=== PATIENT | female | born 1990 | race Caucasian/White ===

== ENCOUNTER → 2018-07-10 | Outpatient (CLI) | payer OTHER ==
[2018-07-10 16:43] LABS: HCT 39.1 % (34.0-46.0); HGB 12.8 gm/dL (11.4-16.0); MCH 30.3 pg (25.0-35.0); MCHC 32.7 g/dL (31.0-37.0); MCV 92.5 fL (80.0-100.0); Mean Platelet Volume 6.3; Platelet Count 267 k/uL (150-450); RBC 4.22 m/uL (3.80-5.40); RDW 12.1 % (11.5-15.5); WBC 5.6 k/uL (3.8-10.6)
[2018-07-10 17:43] LABS: Erythrocyte Sedimentation Rate 7 mm/hr (0-20)
[2018-07-10 23:41] LABS: ALT 23 U/L (8-44); AST 31 U/L (13-35); Albumin/Globulin Ratio 1.84 (1.60-3.17); Alkaline Phosphatase 61 U/L (41-126); C Reactive Protein <0.4 mg/dL (0.0-0.8); Calcium 9.6 mg/dL (8.7-10.3); Carbon Dioxide 26.8 mmol/L (21.6-31.8); Chloride 105 mmol/L (96-109); Globulin 2.5 g/dL (1.6-3.3); Glucose 84 mg/dL (70-110); Potassium 4.5 mmol/L (3.5-5.5); Sodium 139 mmol/L (135-145); Total Bilirubin 0.2 mg/dL (0.3-1.2); Total Protein 7.1 g/dL (6.2-8.2)
== END | disposition home or self-care (01) ==
LOC: LABWHC1 16:22
PROVIDERS: ATTEND Internal Medicine
DX: R19.4 Change in bowel habit (principal)
CPT/HCPCS: 36415; 80053; 83516; 84439; 84443; 85027; 85652; 86140

== ENCOUNTER 2022-01-06 09:54 | Emergency (ER) | payer OTHER ==
[2022-01-06 09:59] VITALS: TEMP 97.5
--- NOTE | 2022-01-06 10:06 | ED ---
General Adult HPI - General Chief complaint: Chest Pain Stated complaint: Chest Pain Time Seen by Provider: 01/06/22 10:04 Source: patient, RN notes reviewed Mode of arrival: ambulatory Limitations: no limitations - History of Present Illness Initial comments: Patient is a 31-year-old female presents the emergency room with complaints of sharp left-sided chest pain that is intermittent without any aggravating or alleviating factors she reports that the pain is worse with deep inspiration and the pain prevents her from taking in a deep breath. She reports last night that she had some restlessness in her lower extremities with the symptoms but denies any other associated symptoms. She had bronchitis a few weeks ago and states her episodes have been more frequently since that time. She denies any shortness of breath not related to inability to take in a deep breath, orthopnea, headache, dizziness, lower extremity edema, headache, nausea, vomiting, diaphoresis, fevers or chills. She denies any family history of cardiovascular disease, PE, DVT or strokes. She states that she had an episode of similar chest pain approximately periodically over the last year but that her symptoms currently seem to be frequent lately. She denies any other significant past medical history and does not take any medications on a regular basis. - Related Data Allergies Allergy/AdvReac Type Severity Reaction Status Date / Time Penicillins Allergy Rash/Hives Verified 01/06/22 09:59 Review of Systems ROS Statement: Those systems with pertinent positive or pertinent negative responses have been documented in the HPI. ROS Other: All systems not noted in ROS Statement are negative. Past Medical History Additional Past Medical History / Comment(s): Bronchitis History of Any Multi-Drug Resistant Organisms: None Reported Past Surgical History: Back Surgery Past Psychological History: No Psychological Hx Reported Smoking Status: Never smoker Past Alcohol Use History: Occasional Past Drug Use History: Marijuana General Exam Limitations: no limitations General appearance: alert, in no apparent distress Head exam: Present: atraumatic, normocephalic, normal inspection Eye exam: Present: normal appearance, PERRL, EOMI. Absent: scleral icterus, conjunctival injection, periorbital swelling ENT exam: Present: normal exam, mucous membranes moist Neck exam: Present: normal inspection. Absent: tenderness, meningismus, lymphadenopathy Respiratory exam: Present: normal lung sounds bilaterally. Absent: respiratory distress, wheezes, rales, rhonchi, stridor Cardiovascular Exam: Present: regular rate, normal rhythm, normal heart sounds. Absent: systolic murmur, diastolic murmur, rubs, gallop, clicks GI/Abdominal exam: Present: soft, normal bowel sounds. Absent: distended, tenderness, guarding, rebound, rigid Extremities exam: Present: normal inspection, full ROM, normal capillary refill. Absent: tenderness, pedal edema, joint swelling, calf tenderness Back exam: Present: normal inspection Neurological exam: Present: alert, oriented X3, CN II-XII intact Psychiatric exam: Present: normal affect, normal mood Skin exam: Present: warm, dry, intact, normal color. Absent: rash Course Vital Signs 01/06/22 01/06/22 01/06/22 09:56 10:46 12:25 Temperature 97.5 F L Pulse Rate 87 75 74 Respiratory 20 18 18 Rate Blood Pressure 132/89 127/81 119/74 O2 Sat by Pulse 100 99 97 Oximetry Medical Decision Making - Medical Decision Making Given sharp pain with deep inspiration low probability for ACS however the setting of persistent chest pain will check EKG, CMP, CBC, troponin and chest x- ray. With difficulty with deep inspiration and chest pain will also check d- dimer. Hemodynamically stable. No need for aspirin or Nitropaste at this time. Will monitor closely. EKG normal sinus rhythm. CBC and chemistry panel overall unremarkable. Troponin negative. Chest x-ray with no acute process. D-dimer normal. Clotting times normal. Patient with bronchitis recently with increased episodes since bronchitis. Symptoms and negative labs consistent with costochondritis. Discussed indications for CTA to evaluate PE however only risk factor use of oral contraceptives. She is a nonsmoker with no family history of DVT and no hypoxia or persistent chest pain. Low probability of PE strict return parameters regarding shortness of breath and chest pain reviewed. Will discharge home. Encouraged follow-up with her primary care provider. Case discussed with Dr. Berry. - Lab Data Result diagrams: 01/06/22 10:30 01/06/22 10:30 Lab Results 01/06/22 01/06/22 01/06/22 Range/Units 10:30 10:30 10:30 WBC 8.3 (3.8-10.6) k/uL RBC 4.26 (3.80-5.40) m/uL Hgb 13.0 (11.4-16.0) gm/dL Hct 39.1 (34.0-46.0) % MCV 91.7 (80.0-100.0) fL MCH 30.6 (25.0-35.0) pg MCHC 33.4 (31.0-37.0) g/dL RDW 11.9 (11.5-15.5) % Plt Count 321 (150-450) k/uL MPV 6.7 Neutrophils % 63 % Lymphocytes % 29 % Monocytes % 4 % Eosinophils % 2 % Basophils % 0 % Neutrophils # 5.3 (1.3-7.7) k/uL Lymphocytes # 2.4 (1.0-4.8) k/uL Monocytes # 0.3 (0-1.0) k/uL Eosinophils # 0.1 (0-0.7) k/uL Basophils # 0.0 (0-0.2) k/uL PT 9.9 (9.0-12.0) sec INR 0.9 (<1.2) APTT 25.4 (22.0-30.0) sec D-Dimer 0.20 (<0.60) mg/L FEU Sodium 138 (137-145) mmol/L Potassium 4.4 (3.5-5.1) mmol/L Chloride 107 (98-107) mmol/L Carbon Dioxide 24 (22-30) mmol/L Anion Gap 7 mmol/L BUN 16 (7-17) mg/dL Creatinine 0.91 (0.52-1.04) mg/dL Est GFR (CKD-EPI)AfAm >90 (>60 ml/min/1.73 sqM) Est GFR (CKD-EPI)NonAf 84 (>60 ml/min/1.73 sqM) Glucose 104 H (74-99) mg/dL Calcium 9.1 (8.4-10.2) mg/dL Magnesium 2.0 (1.6-2.3) mg/dL Total Bilirubin 0.2 (0.2-1.3) mg/dL AST 22 (14-36) U/L ALT 13 (4-34) U/L Alkaline Phosphatase 63 (38-126) U/L Troponin I (0.000-0.034) ng/mL Total Protein 7.5 (6.3-8.2) g/dL Albumin 4.5 (3.5-5.0) g/dL Coronavirus (PCR) (Not Detectd) 01/06/22 01/06/22 Range/Units 10:30 10:46 WBC (3.8-10.6) k/uL RBC (3.80-5.40) m/uL Hgb (11.4-16.0) gm/dL Hct (34.0-46.0) % MCV (80.0-100.0) fL MCH (25.0-35.0) pg MCHC (31.0-37.0) g/dL RDW (11.5-15.5) % Plt Count (150-450) k/uL MPV Neutrophils % % Lymphocytes % % Monocytes % % Eosinophils % % Basophils % % Neutrophils # (1.3-7.7) k/uL Lymphocytes # (1.0-4.8) k/uL Monocytes # (0-1.0) k/uL Eosinophils # (0-0.7) k/uL Basophils # (0-0.2) k/uL PT (9.0-12.0) sec INR (<1.2) APTT (22.0-30.0) sec D-Dimer (<0.60) mg/L FEU Sodium (137-145) mmol/L Potassium (3.5-5.1) mmol/L Chloride (98-107) mmol/L Carbon Dioxide (22-30) mmol/L Anion Gap mmol/L BUN (7-17) mg/dL Creatinine (0.52-1.04) mg/dL Est GFR (CKD-EPI)AfAm (>60 ml/min/1.73 sqM) Est GFR (CKD-EPI)NonAf (>60 ml/min/1.73 sqM) Glucose (74-99) mg/dL Calcium (8.4-10.2) mg/dL Magnesium (1.6-2.3) mg/dL Total Bilirubin (0.2-1.3) mg/dL AST (14-36) U/L ALT (4-34) U/L Alkaline Phosphatase (38-126) U/L Troponin I <0.012 (0.000-0.034) ng/mL Total Protein (6.3-8.2) g/dL Albumin (3.5-5.0) g/dL Coronavirus (PCR) Not Detected (Not Detectd) - EKG Data EKG Comments: Sinus rhythm, ventricular rate 65 bpm, KS interval 140 ms, QRS duration 90 ms, QT/QTC 388/390 ms, PRT axes -1, 46, 17 - Radiology Data Radiology results: report reviewed, image reviewed Two-view chest x-ray: There is no focal airspace opacity, pleural effusion or pneumothorax seen. Cardiac silhouette size is within normal limits. The osseous structures are intact. Impression no acute process. Disposition Clinical Impression: Costochondritis Disposition: HOME SELF-CARE Condition: Stable Instructions (If sedation given, give patient instructions): Costochondritis (ED) Additional Instructions: Recommend [id number] cough suppressants if cough from recent bronchitis persists to help prevent further costochondritis pain. If symptoms seem to worsen or any associated symptoms such as shortness of breath or tachycardia please return to the emergency room immediately. Please follow-up with your primary care provider. Please return to the Emergency Department if symptoms wo rsen or any other concerns. Is patient prescribed a controlled substance at d/c from ED?: No Referrals: Randy Sanders DO [Primary Care Provider] - 1-2 days Time of Disposition: 11:58
[2022-01-06 10:43] LABS: Basophils % (A) 0 %; Eosinophils # (A) 0.1 k/uL (0-0.7); Eosinophils % (A) 2 %; HCT 39.1 % (34.0-46.0); Lymphocytes # (A) 2.4 k/uL (1.0-4.8); Lymphocytes % (A) 29 %; MCH 30.6 pg (25.0-35.0); MCHC 33.4 g/dL (31.0-37.0); MCV 91.7 fL (80.0-100.0); Mean Platelet Volume 6.7; Monocytes # (A) 0.3 k/uL (0-1.0); Monocytes % (A) 4 %; Neutrophils # (A) 5.3 k/uL (1.3-7.7); Neutrophils % (A) 63 %; Platelet Count 321 k/uL (150-450); RBC 4.26 m/uL (3.80-5.40); RDW 11.9 % (11.5-15.5); WBC 8.3 k/uL (3.8-10.6)
[2022-01-06 10:49] VITALS: RESP 18
[2022-01-06 10:54] LABS: ALT 13 U/L (4-34); AST 22 U/L (14-36); African American GFR (CKD) >90 (>60 ml/min/1.73 sqM); Albumin 4.5 g/dL (3.5-5.0); Alkaline Phosphatase 63 U/L (38-126); Anion Gap 7 mmol/L; Blood Urea Nitrogen 16 mg/dL (7-17); Calcium 9.1 mg/dL (8.4-10.2); Carbon Dioxide 24 mmol/L (22-30); Chloride 107 mmol/L (98-107); Glucose 104 mg/dL (74-99); Non-African American GFR(CKD) 84 (>60 ml/min/1.73 sqM); Potassium 4.4 mmol/L (3.5-5.1); Sodium 138 mmol/L (137-145); Total Bilirubin 0.2 mg/dL (0.2-1.3); Total Protein 7.5 g/dL (6.3-8.2)
[2022-01-06 11:00] LABS: INR 0.9 (<1.2); Partial Thromboplastin Time 25.4 sec (22.0-30.0); Prothrombin Time 9.9 sec (9.0-12.0)
--- NOTE | 2022-01-06 11:03 | XR ---
EXAMINATION TYPE: XR chest 2V DATE OF EXAM: 01/06/2022 COMPARISON: NONE HISTORY: Chest pain. TECHNIQUE: Frontal and lateral views of the chest are obtained. FINDINGS: Overlying EKG leads are present. There is no focal air space opacity, pleural effusion, or pneumothorax seen. The cardiac silhouette size is within normal limits. The osseous structures are intact. IMPRESSION: No acute process.
[2022-01-06 12:26] VITALS: BP 119/74; PULSE 74
== END 2022-01-06 12:30 | disposition home or self-care (01) ==
LOC: EC 09:54
DX: M94.0 Chondrocostal junction syndrome [Tietze] (principal); F12.90 Cannabis use, unspecified, uncomplicated; Z20.822 Contact with and (suspected) exposure to COVID-19
CPT/HCPCS: 36415; 71046; 80053; 83735; 84484; 85025; 85379; 85610; 85730; 87635; 93005; 99285

== ENCOUNTER 2023-01-19 06:39 | Day surgery (SDC) | payer BC, OTHER ==
[2023-01-18 11:12] VITALS: BMI 28.1
[2023-01-19] MEDS ORDERED: LACTATED RINGERS 1,000 ML IV SCH (06:58)
[2023-01-19] MEDS ORDERED: LIDOCAINE 1% (10MG/ML) FOR IV START INTRADERMA PRN (06:58)
[2023-01-19 07:14] VITALS: TEMP 98
[2023-01-19] MEDS ORDERED: LIDOCAINE 2% INJ 20 MG/ML (2 ML VIAL) ONE (08:04)
[2023-01-19] MEDS ORDERED: fentaNYL (PF) 50 MCG/ML 2 ML AMP ONE (08:04)
[2023-01-19] MEDS ORDERED: MIDAZOLAM 2 MG/2 ML VIAL ONE (08:04)
[2023-01-19] MEDS ORDERED: PROPOFOL 10 MG/ML 20 ML VIAL IV ONE (08:04)
--- NOTE | 2023-01-19 08:21 | P.PCN ---
Date of Procedure: 01/19/23 Procedure(s) Performed: Brief history: Patient is a pleasant 32-year-old white female scheduled for an elective upper endoscopy as well as colonoscopy as a part of evaluation of chronic diarrhea for the last several months duration. As a part of she was noted to have positive serology for celiac disease. She is scheduled for an upper endoscopy as well as colonoscopy to evaluate further Procedure performed: Esophagogastroduodenoscopy with biopsy Colonoscopy with biopsy Preoperative diagnosis: Positive serology for celiac disease Chronic diarrhea and abdominal pain Anesthesia: MAC Procedure: After informed consent was obtained from the patient was brought into the endoscopy unit and IV sedation was administered by anesthesia under continuous monitoring. Initially upper endoscopy was done. The Olympus GF 160 video endoscope was inserted inserted into the mouth and esophagus intubated without any difficulty and was gradually advanced into the stomach and duodenum and carefully examined. The bulb and second part of the duodenum appeared normal. Biopsies were done from the duodenum to rule out celiac disease. The scope was then withdrawn into the stomach adequately insufflated with air and upon careful examination the antrum had mild antral gastritis and biopsies were done from t his area. Mucosa of the body, cardia and fundus appeared normal. The scope was then withdrawn into the esophagus. The GE junction was located at 40 cm to the incisors. It appeared regular with no erythema erosions or ulcerations. Rest of the esophagus appeared normal. Patient tolerated the procedure well. At this time the patient continued to remain sedation. Initial digital rectal examination was normal. Olympus CF 160 video colonoscope was then inserted into the rectum and gradually advanced to the cecum without any difficulty. Careful examination was performed as the scope was gradually being withdrawn. The prep was excellent. The cecum, ascending colon, transverse colon, descending colon, sigmoid colon and rectum appeared normal. Abscesses were done from ascending and descending colon to rule out microscopic/Collagenous colitis Retroflexion was performed in the rectum and no lesions were noted. Patient tolerated the procedure well. Impression: 1. Upper endoscopy revealed mild antral gastritis but no evidence of esophagitis. Multiple duodenal biopsies to evaluate for celiac disease 2. Colonoscopy was within normal limits with no evidence of colorectal neoplasi a Recommendations: Findings of this examination were discussed with the patient as well as her family. She was advised to follow with the biopsy results. She'll be seen in office in 2 weeks.
[2023-01-19 08:50] VITALS: BP 118/77; PULSE 60; RESP 16
== END 2023-01-19 09:25 | disposition home or self-care (01) ==
LOC: ORWHC2ENDO 06:39
PROVIDERS: ATTEND Internal Medicine Gastroenterology
DX: K29.50 Unspecified chronic gastritis without bleeding (principal); K52.9 Noninfective gastroenteritis and colitis, unspecified; K90.0 Celiac disease; K21.9 Gastro-esophageal reflux disease without esophagitis; Z88.0 Allergy status to penicillin
CPT/HCPCS: 81025; 88305; 45380; 43239; J2250; J3010; J2704; J2001

== ENCOUNTER → 2023-08-02 | Outpatient (CLI) | payer BC, OTHER ==
--- NOTE | 2023-08-02 11:28 | CT ---
EXAMINATION TYPE: CT abdomen pelvis w con DATE OF EXAM: 08/02/2023 COMPARISON: 02/03/2010 INDICATION: abdominal pain, abdominal/pelvic swelling, distention DLP: 697.20 mGycm, Automated exposure control for dose reduction was used. CONTRAST: 100 mL of Isovue 300. Study performed with Oral Contrast TECHNIQUE: Axial images were obtained from above the diaphragm to the pubic rami in the axial plane a t 5 mm thick sections. Reconstructed images are reviewed on the computer in the coronal plane. FINDINGS: Limited CT sections are obtained the lung bases. The lung bases are clear. CT ABDOMEN: Liver: There is mild fatty infiltration liver. Spleen: Normal Pancreas: Normal Adrenal glands: The adrenal glands are normal. Gallbladder: Normal Kidneys: There is a 2.9 cm density measuring 122 Hounsfield units superior pole left kidney there is an interval change from 2009. Additional workup for mass. No hydronephrosis is present. No cysts ar e present. Aorta: Normal Inferior vena cava: Normal. CT PELVIS: Loops of bowel within the abdomen and pelvis are normal. Scattered diverticula without acute divertic ulitis in the sigmoid colon. There are loops of bowel which are incompletely distended or lack ora l contrast limiting their evaluation. Appendix: Normal as visualized. Urinary bladder: Decompressed with some limited evaluation Genitourinary structures: Uterus is normal. There is an IUD within uterus. Adnexa are unremarkable. Osseous structures: No suspicious lytic or sclerotic lesions. Spina bifida occulta of S1 appears to b e present posteriorly spondylolysis on the right is not excluded. IMPRESSION: 1. Diverticulosis without acute diverticulitis sigmoid colon. 2. Solid appearing nodule within the superior medial left kidney. Additional workup is recommended. 3. Mild fatty infiltration of the liver.
== END | disposition home or self-care (01) ==
LOC: RADCTMAIN 09:16
PROVIDERS: ATTEND Obstetrics & Gynecology
DX: K76.0 Fatty (change of) liver, not elsewhere classified (principal); K57.30 Diverticulosis of large intestine without perforation or abscess without bleeding; N28.89 Other specified disorders of kidney and ureter
CPT/HCPCS: 74177; Q9967

== ENCOUNTER → 2023-08-22 | Outpatient (CLI) | payer BC ==
--- NOTE | 2023-08-25 18:18 | MR ---
EXAMINATION TYPE: MR kidney wo/w con DATE OF EXAM: 08/22/2023 9:19 PM CLINICAL INDICATION:Female, 32 years old with history of [id number] KIDNEY CA; [facility], Abnormal CT, left kofi l mass. COMPARISON: CT scan abdomen from 08/02/2023.. TECHNIQUE: Multiplanar multi-sequence imaging was performed without contrast. Post contrast imaging was performed. Post IV contrast subtraction images were also submitted for review. IV Contrast: 7.5 cc Gadobutrol FINDINGS: LOWER CHEST: No gross irregularity. ABDOMEN Liver: No evidence for hepatic steatosis or cirrhosis. Gallbladder and Bile ducts: No evidence for ductal dilation, or biliary stricture or evidence of chol edocholithiasis. The gallbladder is within normal limits. Pancreas: No ductal dilation. No evidence for solid mass. Spleen: Normal for size. Adrenal glands: Unremarkable. Kidneys: Right kidney: No evidence for obstructive uropathy. No suspicious renal masses. Left kidney: Partially exophytic low T2/intermediate T1 signal lesion with postcontrast enhancement m easuring 30 x 25 mm. No central scar Stomach and Bowel: No evidence for bowel wall thickening or evidence for obstruction. Retroperitoneum/Peritoneum: No evidence of pneumoperitoneum or free fluid. Vasculature: No aortic aneurysm. Musculoskeletal: The osseous structures appear intact. Lymph Nodes: No gross evidence for lymphadenopathy. Abdominal wall: Unremarkable. IMPRESSION: Left superior solid renal lesion concerning for solid renal neoplasm which may represent an acoustic, given patient's age with other etiologies such as renal cell carcinoma not excluded. Could represent a renal cell carcinoma versus an on oncocytoma given patient's age. Consider hereditary renal cell c arcinoma syndromes. Urology consultation if not already performed recommended.
== END | disposition home or self-care (01) ==
LOC: RADMRIMAIN 20:45
PROVIDERS: ATTEND Urology
DX: N28.89 Other specified disorders of kidney and ureter (principal); D41.02 Neoplasm of uncertain behavior of left kidney
CPT/HCPCS: 74183; A9585

== ENCOUNTER → 2024-06-12 | Outpatient (CLI) | payer BC ==
--- NOTE | 2024-06-12 08:16 | MM ---
Reason for Exam: Clinical finding. Baseline mammogram. Indicated Problems: Pain of both sides (Focal) for 1 Month(s). Patient History: Menarche at age 14. Patient has no children. Maternal grandmother had breast cancer, age 70. Last menstrual period: 12/16/2022 Prior Study Comparison: Patient's first Mammogram. Tissue Density: The breasts are heterogeneously dense, which may obscure small masses. Findings: Analyzed By CAD. No finding to correlate with patient's pain bilaterally. Overall Assessment: Incomplete: need additional imaging evaluation, BI-RAD 0 Management: Diagnostic Breast Ultrasound of both breasts. Results were given to the patient verbally at the time of exam. Patient should continue monthly self-breast exams. A clinical breast exam by your physician is recommended on an annual basis. This exam should not preclude additional follow-up of suspicious palpable abnormalities. Note on Lisette scores and lifetime risk: 1. A Lisette score greater than 3% is considered moderate risk. If this is the case, consider specialist referral to assess eligibility for a risk reducing agent. 2. If overall lifetime risk for the development of breast cancer is 20% or higher, the patient may qualify for future screening with alternating mammogram and breast MRI. [facility], , 06/12/2024 8:13 AM. Electronically signed and approved by: Joel Page DO
--- NOTE | 2024-06-12 08:37 | USB ---
Reason for Exam: Clinical finding. Patient History: Menarche at age 14. Patient has no children. Maternal grandmother had breast cancer, age 70. Technique: Method: Targeted. Findings: The upper outer quadrant of the right breast, the periareolar of the left breast, the axilla of both breasts and the retroareolar of both breasts were scanned. Technique utilized:US breast limited BILAT Image; Ultrasound imaging of: Area of concern, retroareolar region and axilla. No evidence for organizing fluid collection or mass. Normal-appearing lymph node in the area of pain and the right breast 9:00 10 cm from the nipple. Overall Assessment: Benign, BI-RAD 2 Management: Screening Mammogram of both breasts at age 40. A clinical breast exam by your physician is recommended on an annual basis and results should be correlated with mammographic findings. This exam should not preclude additional follow-up of suspicious palpable abnormalities. Results were given to the patient verbally at the time of exam. [facility], , 06/12/2024 8:35 AM. Electronically signed and approved by: Joel Page DO
== END | disposition home or self-care (01) ==
LOC: RADMAMWWP 07:34
PROVIDERS: ATTEND Obstetrics & Gynecology
DX: R92.8 Other abnormal and inconclusive findings on diagnostic imaging of breast (principal); R92.333 Mammographic heterogeneous density, bilateral breasts; N64.4 Mastodynia; Z80.3 Family history of malignant neoplasm of breast
CPT/HCPCS: 77062; 77066

== ENCOUNTER → 2024-08-14 | Outpatient (CLI) | payer BC ==
[2024-08-14 15:32] VITALS: BP 120/77; PULSE 82; RESP 16; TEMP 98.2
--- NOTE | 2024-08-14 19:20 | P.SLEEP ---
History of Present Illness DATE: 08/14/2024 CONSULTATION/NEW PATIENT EVALUATION HISTORY OF PRESENT ILLNESS/SLEEP-WAKE EVALUATION: 33-year-old lady had been e valuated in the sleep center for possible obstructive sleep apnea hypopnea syndrome. SLEEP SCHEDULE: Usually sleep schedule from 910:30 PM to 7 AM on weekdays and [place] [address] AM on weekend. FALLING ASLEEP: Sometimes patient has difficulties with falling asleep, used to read in bedroom. DURING SLEEP: Patient snores, grind her teeth wakes up from sleep up to 4 times with 2 episodes of nocturia and turn from [id number], positive history of restless legs symptoms, sleep talking and sweating. No history of hypnogogical hallucinations, sleep paralysis, or cataplexy. DURING THE DAY/WAKE STATE: In the morning patient wake up tired, has difficulties to pay attention, has problems with memory, concentration, irritability, depression. [place] sleepiness scale is 5. Patient does not take naps. PAST MEDICAL HISTORY: Anxiety, irritable bowel syndrome. PAST SURGICAL HISTORY: Adenoidectomy, lumbar laminectomy, partial left nephrectomy for renal carcinoma. MEDICATIONS: Have been reviewed, please see below. SOCIAL HISTORY: See below, . FAMILY HISTORY: See below. REVIEW OF SYSTEMS: Loud snoring, multiple awakenings from sleep. No fevers. No double vision. No recent chest pain. No shortness of breath. No abdominal pain. No bleeding episodes. No blood in urine. No seizure episodes. PHYSICAL EXAMINATION: GENERAL: A pleasant patient without any distress. VITAL SIGNS: See below, weight 195 pounds, BMI 31.0. HEENT: PERRLA, EOMI. Evaluation of oropharynx showed tongue protrudes midline, low position of soft palate Mallampati 3, retrognathia 2 mm. NECK: Supple. No JVD. Thyroid is not palpable. 14-1/4 inches in circumference. LUNGS: Clear to percussion and to auscultation. Good air exchange. No wheezing or rhonchi. HEART: S1, S2 regular. No murmurs, gallops or rubs. ABDOMEN: Soft and nontender. Bowel sounds are present. No organomegaly appreciated. EXTREMITIES: No clubbing or cyanosis. TECHNICAL PHOTOGRAPHER: Awake, alert, and oriented x3. Cranial nerves 2 to 7 intact. There is no fasciculation or atrophy noted. No focal deficits observed. ASSESSMENT: 1. Loud snoring, multiple awakenings from sleep, low position of soft palate Mallampati 3. Obstructive sleep apnea hypopnea syndrome. 2. Significant amount of movements during the sleep, possibly periodic limb movements. 3. Restless leg symptoms. 4. Anxiety. 5 irritable bowel syndrome. 6 . Status post laminectomy in the lumbar area. 7. Status post adenoidectomy. 8. Status post partial nephrectomy on the left side for renal carcinoma. PLAN: 1. Home sleep apnea test for evaluation of patient's breathing during sleep. 2. Following plan after reading sleep study. 3. Preferable position during sleep on the side. 4. No driving if patient feels any sleepiness. Patient is aware of civil and criminal liability for unsafe driving. 5. Sleep hygiene with regular sleep time for at least 7.5-8 hours. 6. Watching weight. Thank you very much for referring this patient for consultation. Sincerely, Juan Jose Butt MD, PhD, FAASM. Diplomat of [place] [employer], Sleep Medicine Board by [place] [employer] [place] [employer] [facility] [place] cc: Randy Sanders DO Past Medical History Past Medical History: Cancer, GERD/Reflux Additional Past Medical History / Comment(s): Hx heart murmur as a child. Hx Bronchitis., Kidney Cancer, snoring History of Any Multi-Drug Resistant Organisms: None Reported Past Surgical History: Adenoidectomy, Back Surgery Past Anesthesia/Blood Transfusion Reactions: No Reported Reaction Past Psychological History: No Psychological Hx Reported Smoking Status: Never smoker Past Alcohol Use History: Occasional Past Drug Use History: None Reported - Past Family History Mother Family Medical History: No Reported History, Asthma, Fibromyalgia, Hyperlipidemia, Hypertension, Pneumonia Additional Family Medical History / Comment(s): arthritis unknown type, sinus headaches, Emphysema, Bronchitis, headaches, mental illness, anemia Father Additional Family Medical History / Comment(s): Sinus Headaches, headaches Brother(s) Additional Family Medical History / Comment(s): Mental Illness Sister(s) Additional Family Medical History / Comment(s): Mental illness Medications and Allergies Home Medications Medication Instructions Recorded Confirmed Type ALPRAZolam [Xanax] 0.25 mg PO DIRECTED PRN 08/14/24 08/14/24 History Dicyclomine [Bentyl] 10 mg PO DIRECTED PRN 08/14/24 08/14/24 History Escitalopram [Lexapro] 10 mg PO DAILY 08/14/24 08/14/24 History Eszopiclone 3 mg PO DIRECTED PRN 08/14/24 08/14/24 History Hyoscyamine Sulfate [Levsin-Sl] 0.125 mg PO DIRECTED PRN 08/14/24 08/14/24 History Ibuprofen 600 mg PO DIRECTED PRN 08/14/24 08/14/24 History levonorgestreL [Mirena] See Rx Instructions .ROUTE .COMPLEX 08/14/24 08/14/24 History Allergies Allergy/AdvReac Type Severity Reaction Status Date / Time Penicillins Allergy Rash/Hives Verified 01/19/23 07:06 Physical Exam Vitals: Vital Signs Temp Pulse Resp BP Pulse Ox 08/14/24 15:29 98.2 F 82 16 120/77 96 Intake and Output 08/14/24 08/14/24 08/14/24 06:59 14:59 22:59 Other: Weight 88.451 kg Sleep Note - Sleep Data ESS Total: 5 - Sleep Note Sleep Note: Temperature: 98.2 F Pulse Rate: 82 Respiratory Rate: 16 Blood Pressure: 120/77 SpO2: 96 Height: 5 ft 6.5 in Weight: 88.451 kg BMI: Neck Circumference: 14.2
== END ==
LOC: 3 N SLEEP 15:13
PROVIDERS: ATTEND Internal Medicine
DX: G47.33 Obstructive sleep apnea (adult) (pediatric) (principal); G25.81 Restless legs syndrome; F41.9 Anxiety disorder, unspecified; K58.9 Irritable bowel syndrome, unspecified; Z98.890 Other specified postprocedural states; Z90.89 Acquired absence of other organs; Z90.5 Acquired absence of kidney; Z88.0 Allergy status to penicillin
CPT/HCPCS: 99211

== ENCOUNTER → 2024-08-26 | Outpatient (CLI) | payer BC ==
--- NOTE | 2024-08-27 12:27 | P.PCN ---
Description of Procedure: CLINICAL: A home sleep apnea test has been done for confirmation of possible obstructive sleep apnea-hypopnea syndrome. DESCRIPTION OF PROCEDURE: RESULTS: Recording time was 7 hours 53 minutes. Evaluation time was 7 hours 42 minutes. Evaluation time is sufficient for making conclusion about results of the test. Raw data of sleep recording has been reviewed and is adequate. Respiratory channel showed 11 apneas and 30 hypopneas. Apnea-hypopnea index was 5.3 per hour. Pulse rate in the range between minimum 46, maximum 101, average 63 by computer calculation. Lowest desaturation was 86%. IMPRESSION: 1. Mild Obstructive Sleep Apnea Hypopnea Syndrome, although home sleep apnea test may underestimate severity of obstructive sleep apnea hypopnea syndrome. 2. Snoring have been documented during the sleep study. 3. History of anxiety. Please see other impressions from consultation. PLAN: 1. I will see patient for follow-up visit to discuss results of the sleep study and following plan. 2. Watching weight. 3. Sleep hygiene with regular time in bed for at least 8 hours. 4. No driving if feeling any sleepiness. Thank you very much for allowing me to participate in the management of your patient. Sincerely, Juan Jose Butt MD, PhD, FAASM Diplomat of [place] [employer] Sleep Medicine Board of [place] [employer] [facility] [place] cc: Randy Sanders DO
== END ==
LOC: 3 N SLEEP 16:33
PROVIDERS: ATTEND Internal Medicine
DX: G47.33 Obstructive sleep apnea (adult) (pediatric) (principal); Z88.0 Allergy status to penicillin; Z86.59 Personal history of other mental and behavioral disorders

== ENCOUNTER → 2024-10-09 | Outpatient (CLI) | payer BC ==
[2024-10-09 11:35] VITALS: BP 110/67; PULSE 54; RESP 16; TEMP 98.1
--- NOTE | 2024-10-09 12:17 | P.PROGSL ---
Subjective DATE: 10/09/2024 FOLLOW UP VISIT. Patient returned to sleep center for follow-up visit to discuss results of sleep study and following plan. I explained results of sleep study to the patient in details. She has mild obstructive sleep apnea hypopnea syndrome with apnea hypopnea index 5.3 and oxygen desaturation to 86%. Patient continued to feel sleepiness during the day. [place] sleepiness scale is 16 today. MEDICATIONS: Please see below During physical exam: GENERAL: A pleasant patient without any distress. VITAL SIGNS: Please see below. HEENT: PERRLA, EOMI. NECK: Supple. No JVD. LUNGS: Clear to percussion and to auscultation. Good air exchange. No wheezing or rhonchi. HEART: S1, S2 regular. ABDOMEN: Soft and nontender. EXTREMITIES: No clubbing or cyanosis. 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 No focal deficit. Impressions: 1. Obstructive sleep apnea hypopnea syndrome in mild range. 2. Sleepiness, [place] Sleepiness Scale is 16. 3. Anxiety. 4. Irritable bowel syndrome. 5. Status postlaminectomy and lumbar area. 6. Status post adenoidectomy. 7. Status post partial nephrectomy on the left side for renal carcinoma. Plan: 1. Patient will be started on treatment with AutoPap and should use equipment every night for the whole night. 2. Sleep hygiene with regular time in bed for at least 8 hours. 3. I will see patient for follow-up visit to evaluate clinical response to treatment, compliance with treatment and [place] adjustments related to mask fitting pressure and humidification. 4. Precautions related to driving. No driving if feel any sleepiness. Patient is aware about civil and criminal liability for unsafe driving, promised to follow recommendations. 5. Follow up visit in 1-3 months after patient will start CPAP treatment. Thank you very much for allowing me to participate in the management of your patient. Juan Jose Butt MD, PhD, FAASM. Diplomat of [place] [employer], Sleep Medicine Board by [place] [employer]ret Punch Operator [facility] [place] Objective - Vital Signs Vital Signs: Vital Signs Temp 98.1 F 10/09/24 11:34 Pulse 54 L 10/09/24 11:34 Resp 16 10/09/24 11:34 BP 110/67 10/09/24 11:34 Pulse Ox 99 10/09/24 11:34 FiO2 Intake & Output 10/08/24 10/09/24 10/09/24 18:59 06:59 18:59 Weight 86.183 kg Home Medications: Home Medications Medication Instructions Recorded Confirmed Type ALPRAZolam [Xanax] 0.25 mg PO DIRECTED PRN 08/14/24 10/09/24 History Dicyclomine [Bentyl] 10 mg PO DIRECTED PRN 08/14/24 10/09/24 History Escitalopram [Lexapro] 10 mg PO DAILY 08/14/24 10/09/24 History Eszopiclone 3 mg PO DIRECTED PRN 08/14/24 10/09/24 History Hyoscyamine Sulfate [Levsin-Sl] 0.125 mg PO DIRECTED PRN 08/14/24 10/09/24 History Ibuprofen 600 mg PO DIRECTED PRN 08/14/24 10/09/24 History levonorgestreL [Mirena] See Rx Instructions .ROUTE .COMPLEX 08/14/24 10/09/24 History
== END ==
LOC: 3 N SLEEP 11:12
PROVIDERS: ATTEND Internal Medicine
DX: G47.33 Obstructive sleep apnea (adult) (pediatric) (principal); F41.9 Anxiety disorder, unspecified; K58.9 Irritable bowel syndrome, unspecified; Z90.5 Acquired absence of kidney; Z98.890 Other specified postprocedural states; Z88.0 Allergy status to penicillin; Z90.89 Acquired absence of other organs; Z85.528 Personal history of other malignant neoplasm of kidney
CPT/HCPCS: 99212

== ENCOUNTER → 2024-12-25 | Outpatient (CLI) | payer BC ==
[2024-12-25 16:10] VITALS: BP 117/72; PULSE 64; RESP 16; TEMP 98.1
--- NOTE | 2024-12-25 16:42 | P.PROGSL ---
Subjective DATE: 12/25/2024 FOLLOW UP VISIT. Patient with obstructive sleep apnea hypopnea syndrome return to sleep center for follow-up visit. Recently patient had sleep study which documented obstructive sleep apnea hypopnea syndrome. Patient was initiated on PAP therapy and today is first visit after treatment was started. Patient was able to use PAP equipment every night for the whole night. The patient does not have significant problems with the mask, PAP pressure and humidification. [place] sleepiness scale is significantly increased to 15. I checked information from PAP unit. PAP unit pressure 5-13, average 9.9 cm H2O. Usage is 80% for more then 4 hours, average 7 hours per night. Leak is 0.6 l/m, which is in perfect range. Apnea Hypopnea Index is 1.8, which is normal. MEDICATIONS: Please see below During physical exam: GENERAL: A pleasant patient without any distress. VITAL SIGNS: Please see below, weight 192 pounds. HEENT: PERRLA, EOMI.low position of soft palate, [place] 3. NECK: Supple. No JVD. LUNGS: Clear to percussion and to auscultation. Good air exchange. No wheezing or rhonchi. HEART: S1, S2 regular. ABDOMEN: Soft and nontender.[] EXTREMITIES: No clubbing or cyanosis. 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 No focal deficit. Impressions: 1. Obstructive sleep apnea-hypopnea syndrome. Patient demonstrated great compliance with treatment, benefiting from treatment. 2. Patient improved quality of sleep, but she continued to feel sleepiness during the day, [place] Sleepiness Scale still increased to 15. 3. History of anxiety. 4. History of irritable bowel syndrome. 5. Status post laminectomy in the lumbar area. 6. Status post adenoidectomy. 7. Status post partial nephrectomy on the left side for renal carcinoma. Plan: 1. Continue using PAP equipment every night for the whole night. 2. To change air filter at least 1-2 times per month. 3. PAP unit should stay lower then position of the head. 4. Advised patient to remove all remaining water from humidifier canister daily and make it dry after each usage. Refill canister with fresh distilled water before each usage. 5. Sleep hygiene with regular time in bed for at least 8 hours. 6. Precautions related to driving. No driving if feel any sleepiness. 7. I will maintain prescription for PAP supplies including mask, tube, filters. 8. Follow up visit in 3-4 months or earlier if patient has any problems. If patient will continue significant sleepiness while on treatment with CPAP we will consider multiple sleep latency test. 9. Watching weight. Thank you very much for allowing me to participate in the management of your patient. Juan Jose Butt MD, PhD, FAASM. Diplomat of [place] [employer], Sleep Medicine Board by [place] [employer] Code Enforcement Inspector of [facility] [place] Objective - Vital Signs Vital Signs: Vital Signs Temp 98.1 F 12/25/24 16:09 Pulse 64 12/25/24 16:09 Resp 16 12/25/24 16:09 BP 117/72 12/25/24 16:09 Pulse Ox 97 12/25/24 16:09 FiO2 Home Medications: Home Medications Medication Instructions Recorded Confirmed Type ALPRAZolam [Xanax] 0.25 mg PO DIRECTED PRN 08/14/24 10/09/24 History Dicyclomine [Bentyl] 10 mg PO DIRECTED PRN 08/14/24 10/09/24 History Escitalopram [Lexapro] 10 mg PO DAILY 08/14/24 10/09/24 History Eszopiclone 3 mg PO DIRECTED PRN 08/14/24 10/09/24 History Hyoscyamine Sulfate [Levsin-Sl] 0.125 mg PO DIRECTED PRN 08/14/24 10/09/24 History Ibuprofen 600 mg PO DIRECTED PRN 08/14/24 10/09/24 History levonorgestreL [Mirena] See Rx Instructions .ROUTE .COMPLEX 08/14/24 10/09/24 History
== END ==
LOC: 3 N SLEEP 15:54
PROVIDERS: ATTEND Internal Medicine
DX: G47.33 Obstructive sleep apnea (adult) (pediatric) (principal); F41.9 Anxiety disorder, unspecified; Z98.890 Other specified postprocedural states; Z90.89 Acquired absence of other organs; Z90.5 Acquired absence of kidney; Z85.528 Personal history of other malignant neoplasm of kidney; Z87.19 Personal history of other diseases of the digestive system; Z99.89 Dependence on other enabling machines and devices; Z88.0 Allergy status to penicillin
CPT/HCPCS: 99212